=== PATIENT | female | born 1930 | race Caucasian/White ===

== ENCOUNTER 2018-09-24 14:56 | Inpatient (IN) ==
--- NOTE | 2018-09-24 15:58 | Pharmacy Consult Notes ---
[facility] Pharmacy VTE Monitoring - Patient Demographics Admission date: 09/24/18 Report Date: 09/24/18 Time: 15:58 Allergies/Adverse Reactions: Patient Allergies aspirin [ASPIRIN] Allergy (Mild, Unverified 05/14/17 15:32) levofloxacin [From LEVAQUIN] Allergy (Mild, Unverified 05/14/17 15:32) morphine [MORPHINE] Allergy (Mild, Unverified 05/14/17 15:32) Height: 1.63 m Weight: 89.159 kg - VTE Risk Was VTE Risk Assessment Performed: Yes VTE Score: 2 VTE Risk Level: Very Low Risk Clinical Trial Participant: No - Prophylaxis VTE Prophylaxis Ordered?: Yes Types of VTE Prophylaxis: TEDS Knee High Location of Applied Device: Bilateral Lower Extremeties
[2018-09-24 16:08] LABS: Basophils # 0.1 K/mm3 (0-0.2); Basophils % 0.5 % (0.1-2.0); Eosinophils # 0.1 K/mm3 (0.0-0.4); Eosinophils % 0.4 % (0.1-12.0); Hemoglobin 13.7 g/dL (12.2-16.2); Lymphocytes # 2.1 K/mm3 (0.7-4.5); Lymphocytes % 18.8 % (10-50); Mean Corpuscular HGB Conc 33.4 g/dL (31.8-35.4); Mean Corpuscular Hemoglobin 30.7 pg (27.0-31.2); Mean Corpuscular Volume 91.8 fl (81-99); Monocytes # 0.9 K/mm3 (0.1-1.0); Neutrophils % 72.3 % (37.0-80.0); Platelet Count 193 K/mm3 (142-424); Red Blood Count 4.46 M/mm3 (4.20-5.40); Red Cell Distribution Width 13.7 % (11.5-17.5); White Blood Count 11.1 K/mm3 (4.8-10.8)
[2018-09-24 16:11] LABS: Anion Gap 14.2 mEq/L (5-15); Calcium 9.5 mg/dL (8.5-10.1); Potassium 4.2 mmoL/L (3.5-5.1)
--- NOTE | 2018-09-24 17:41 | History & Physical Report ---
*Admission Date: 09/24/18 *Chief complaint: Cough/fever *History of present illness: 88-year-old white female with multiple medical problems who presented to my office with 48 hours of high fever, with temperatures greater than 102 degrees, with cough, congestion and poor oral intake, who had been exposed to multiple viral type illnesses at home with her children and grandchildren. In the office she was found to have negative influenza serologies, negative streptococcal rapid throat testing, but had crackles in her right lower lung field, admitted to hospital for community-acquired pneumonia as a direct admission given her tachycardia, high fever and advanced age with multiple comorbid conditions. 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 No: Pacemaker Amputation: No Fractures: No - *Social History Educational Level: Completed Grade School Smoking Status: Former smoker Tobacco Type: cigarettes # Packs/Day (cigarettes): 1 #Yrs smoked (if former smoker): 5 Alcohol Intake: never *Occupational Status:: retired Housing: house Household Members: children *Travel in the last 8 weeks: None - Psychiatric History Expresses thoughts of harming self/others: None Suicide Plan Description: No Plan Family Hx:: No significant family history Review of Systems - Review of Systems Review of systems:: pertinent systems reviewed and negative unless documented below - Constitutional Reports anorexia, Reports fatigue, Reports fever(s), Reports headache(s) - Eyes Denies blind spots, Denies blurry vision, Denies change in vision - ENT Reports dry mouth, Denies abnormal hearing, Denies dizziness - *Cardiovascular Reports excessive sweating, Denies chest pain, Denies shortness of breath - *Respiratory Reports change in phlegm color, Reports chest congestion, Reports cough, Reports shortness of breath - *Gastrointestinal Denies abdominal pain - *Musculoskeletal Denies abnormal walking - Integumentary/Breasts Denies acne - Psychiatric Denies abnormal sleep pattern Meds Home Medications Medication Instructions Recorded Confirmed Type Amlodipine Besylate [Amlodipine 10 mg PO DAILY 09/24/18 09/24/18 History 10mg Tab] Atorvastatin Calcium [Atorvastatin 40 mg PO HS 09/24/18 09/24/18 History 40mg Tab] Metoprolol Tartrate [Lopressor 25 mg PO DAILY 09/24/18 09/24/18 History 25mg tablet] Montelukast Sodium [Montelukast 10 mg PO DAILY 09/24/18 09/24/18 History 10mg Tab] Montelukast Sodium [Singulair 10mg 10 mg PO PM 09/24/18 09/24/18 History tablet] Olopatadine HCl 1 drops OP DIRECTED 09/24/18 09/24/18 History Sitagliptin Phosphate [Januvia 50 mg PO DAILY 09/24/18 09/24/18 History 50mg Tablet] Ticagrelor [Brilinta 90mg Tablet] 90 mg PO BID 09/24/18 09/24/18 History Warfarin Sodium [Coumadin 1mg 1.5 mg PO DAILY 09/24/18 09/24/18 History tablet] Warfarin Sodium [Coumadin 2mg 2 mg PO WEEKLY 09/24/18 09/24/18 History tablet] Allergies Allergy/AdvReac Type Severity Reaction Status Date / Time aspirin [ASPIRIN] Allergy Mild Unverified 05/14/17 15:32 levofloxacin [From LEVAQUIN] Allergy Mild Unverified 05/14/17 15:32 morphine [MORPHINE] Allergy Mild Unverified 05/14/17 15:32 Exam Vital signs and Labs for Last 24 Hours: Temp Pulse Resp BP Pulse Ox 100.2 F H 150 H 22 150/85 H 96 09/24/18 15:27 09/24/18 15:27 09/24/18 15:27 09/24/18 15:27 09/24/18 15:27 Laboratory Results - last 24 hr 09/24/18 15:45: WBC 11.1 H, RBC 4.46, Hgb 13.7, Hct 41.0, MCV 91.8, MCH 30.7, MCHC 33.4, RDW 13.7, Plt Count 193, MPV 8.0, Neut % (Auto) 72.3, Lymph % (Auto) 18.8, [place] % (Auto) 8.0, Eos % (Auto) 0.4, Baso % (Auto) 0.5, Neut # (Auto) 8.0 H, Lymph # (Auto) 2.1, [place] # (Auto) 0.9, Eos # (Auto) 0.1, Baso # (Auto) 0.1 09/24/18 15:45: Sodium 133 L, Potassium 4.2, Chloride 97 L, Carbon Dioxide 26, Anion Gap 14.2, BUN 14, Creatinine 1.34 H, Estimated Creat Clear 42, Estimated GFR 37 L, Est GFR ( Amer) 45 L, Glucose 253 H, Calcium 9.5 09/24/18 15:45: Mycoplasma pneumon IgM Non-reactive I & O for Last 24 hours: Intake & Output 09/22/18 09/23/18 09/24/18 09/25/18 11:59 11:59 11:59 11:59 Weight 196 lb 9 oz Narrative: Patient is awake, pleasant, alert, oriented. Oropharynx dry but clear. Previously noted left facial drooping. Lungs have crackles in right lower lung field approximately one third of the way up the lung field. Heart rate regular with occasional ectopic beat. Abdomen soft and nontender. Trace ankle edema. Able to move all arms and legs symmetrically. Assessment and Plan (1) Community acquired pneumonia Current visit: Yes Status: Acute Category: Medical Code(s): J18.9 - Pneumonia, unspecified organism Admit to hospital. Begin standard therapy. Oxygen therapy and close observation. Gentle hydration. (2) Acute febrile illness Current visit: Yes Status: Acute Category: Medical Code(s): R50.9 - Fever, unspecified Blood and sputum cultures ordered. (3) BMI greater than 30 Current visit: Yes Status: Acute Category: Medical (4) Diabetes mellitus type 2, noninsulin dependent Current visit: Yes Status: Acute Category: Medical Code(s): E11.9 - Type 2 diabetes mellitus without complications Continue oral therapy, sliding scale insulin, complicates all aspects of her care (5) Coronary atherosclerosis Current visit: Yes Status: Acute Category: Medical Code(s): I25.10 - Atherosclerotic heart disease of [place] coronary artery without angina pectoris No evidence of recurrent disease. Complicates all aspects of her care (6) Chronic atrial fibrillation Current visit: Yes Status: Acute Category: Medical Code(s): I48.2 - Chronic atrial fibrillation Rate controlled, on anticoagulation.
[2018-09-25 06:42] LABS: Basophils % 0.4 % (0.1-2.0); Eosinophils # 0.1 K/mm3 (0.0-0.4); Eosinophils % 0.8 % (0.1-12.0); Hematocrit 36.4 % (37.0-47.0); Lymphocytes % 28.9 % (10-50); Mean Corpuscular HGB Conc 33.3 g/dL (31.8-35.4); Mean Corpuscular Hemoglobin 31.1 pg (27.0-31.2); Mean Corpuscular Volume 93.3 fl (81-99); Mean Platelet Volume 7.8 fl (7.4-10.4); Monocytes # 0.9 K/mm3 (0.1-1.0); Monocytes % 8.5 % (1.7-9.3); Neutrophils # 6.3 K/mm3 (1.8-7.8); Neutrophils % 61.3 % (37.0-80.0); Platelet Count 188 K/mm3 (142-424); Red Cell Distribution Width 13.8 % (11.5-17.5); White Blood Count 10.3 K/mm3 (4.8-10.8)
[2018-09-25 06:48] LABS: INR 2.69 (0.9-1.1); Prothrombin Time 26.9 seconds (9.4-11.8)
[2018-09-25 06:56] LABS: Hemoglobin 12.2 g/dL (12.2-16.2)
[2018-09-25 07:06] LABS: Albumin Level 2.3 gm/dL (3.4-5.0); Albumin/Globulin Ratio 0.4 (1.1-1.8); Anion Gap 11.7 mEq/L (5-15); Bilirubin,Total 0.5 mg/dL (0.2-1.0); Calcium 8.9 mg/dL (8.5-10.1); Globulin 5.6 gm/dl (1.3-3.2); Potassium 3.7 mmoL/L (3.5-5.1); Total Protein,Serum 7.9 gm/dL (6.4-8.2)
--- NOTE | 2018-09-25 07:32 | Progress Note ---
Internal Medicine - PN: Subj *Date: 09/25/18 *Time: 07:29 Interval history: Patient did well overnight. This morning she states that she feels "lazy." But denies pain. Emergency Exam Vital signs and Labs for Last 24 Hours: Temp Pulse Resp BP Pulse Ox 98.4 F 107 H 18 142/68 H 97 09/25/18 04:00 09/25/18 04:00 09/25/18 04:00 09/25/18 04:00 09/25/18 04:00 Laboratory Results - last 24 hr 09/24/18 15:45: WBC 11.1 H, RBC 4.46, Hgb 13.7, Hct 41.0, MCV 91.8, MCH 30.7, MCHC 33.4, RDW 13.7, Plt Count 193, MPV 8.0, Neut % (Auto) 72.3, Lymph % (Auto) 18.8, Iron % (Auto) 8.0, Eos % (Auto) 0.4, Baso % (Auto) 0.5, Neut # (Auto) 8.0 H, Lymph # (Auto) 2.1, Iron # (Auto) 0.9, Eos # (Auto) 0.1, Baso # (Auto) 0.1 09/24/18 15:45: Sodium 133 L, Potassium 4.2, Chloride 97 L, Carbon Dioxide 26, Anion Gap 14.2, BUN 14, Creatinine 1.34 H, Estimated Creat Clear 42, Estimated GFR 37 L, Est GFR ( Amer) 45 L, Glucose 253 H, Calcium 9.5 09/24/18 15:45: Mycoplasma pneumon IgM Non-reactive 09/24/18 20:46: POC Glucose 233 H 09/25/18 05:39: WBC 10.3, RBC 3.90 L, Hgb 12.2 D, Hct 36.4 L, MCV 93.3, MCH 31.1, MCHC 33.3, RDW 13.8, Plt Count 188, MPV 7.8, Neut % (Auto) 61.3, Lymph % (Auto) 28.9, Iron % (Auto) 8.5, Eos % (Auto) 0.8, Baso % (Auto) 0.4, Neut # (Auto) 6.3, Lymph # (Auto) 3.0, Iron # (Auto) 0.9, Eos # (Auto) 0.1, Baso # (Auto) 0.0 09/25/18 05:39: PT 26.9 H, INR 2.69 H 09/25/18 05:39: Sodium 136, Potassium 3.7, Chloride 102, Carbon Dioxide 26, Anio n Gap 11.7, BUN 13, Creatinine 1.15 H, Estimated Creat Clear 48, Estimated GFR 45 L, Est GFR ( Amer) 54 L, Glucose 151 H D, Calcium 8.9, Total Bilirubin 0.5, AST 24, ALT 33, Alkaline Phosphatase 76, Total Protein 7.9, Albumin 2.3 L, Globulin 5.6 H, Albumin/Globulin Ratio 0.4 L 09/25/18 06:22: POC Glucose 162 H I & O for Last 24 hours: Intake & Output 09/22/18 09/23/18 09/24/18 09/25/18 11:59 11:59 11:59 11:59 Intake Total 963 / 963 Output Total 150 / 150 Balance 813 / 813 Weight 196 lb 6 oz Microbiology Reports for the Last 24 Hours: Microbiology 09/24/18 21:10 Sputum - Expectorated Sputum Gram Stain - Final Narrative: Patient is alert, pleasant. Able to move about in the bed and sit up under her own power. Lungs have rhonchi in both lung romano with crackles in the right side. No wheezing. Heart rate regular with a soft flow murmur. Abdomen soft and nontender. No ankle edema or clubbing. No new neurologic changes, is continues to have facial drooping as a residual from her old CVA Assessment and Plan (1) Community acquired pneumonia Current visit: Yes Status: Acute Category: Medical Code(s): J18.9 - Pneumonia, unspecified organism Right lower lobe pneumonia on chest x-ray. Continue standard protocol for community-acquired pneumonia and await culture results. (2) Acute febrile illness Current visit: Yes Status: Acute Category: Medical Code(s): R50.9 - Fever, unspecified Fever improving. (3) BMI greater than 30 Current visit: Yes Status: Acute Category: Medical (4) Diabetes mellitus type 2, noninsulin dependent Current visit: Yes Status: Acute Category: Medical Code(s): E11.9 - Type 2 diabetes mellitus without complications (5) Coronary atherosclerosis Current visit: Yes Status: Acute Category: Medical Code(s): I25.10 - Atherosclerotic heart disease of [place] coronary artery without angina pectoris (6) Chronic atrial fibrillation Current visit: Yes Status: Acute Category: Medical Code(s): I48.2 - Chronic atrial fibrillation (7) Hyponatremia Current visit: Yes Status: Acute Category: Medical Code(s): E87.1 - Hypo- osmolality and hyponatremia Present on admission, improving. (8) History of CVA with residual deficit Current visit: Yes Status: Acute Category: Medical Code(s): I69.30 - Unspecified sequelae of cerebral infarction Complicates all aspects of her care. We will obtain speech evaluation with modified barium swallow today given right lower lobe pneumonia and facial drooping.
[2018-09-26 04:28] LABS: Microscopic, Urine URINE MICROSCOPIC (MICROSCOPIC)
[2018-09-26 04:32] LABS: Appearance,Urine CLEAR (Clear); Bilirubin,Urine Negative (Negative); Blood, Urine TRACE-I (Negative); Color,Urine YELLOW (Yellow); Glucose,Urine (UA) Negative (Negative); Ketones,Urine Negative (Negative); Leukocyte Esterase,Urine 1+ (Negative); Protein,Urine 1+ (Negative); Specific Gravity, Urine 1.015 (1.005-1.030); Urobilinogen,Urine 0.2 EU/dl (0.2)
[2018-09-26 05:15] LABS: Bacteria,Urine 1+ /lpf; RBC,Urine Occasional #/hpf (0-3); Squamous Epithelial Cell,Urine 20-50 #/hpf (0-5)
[2018-09-26 06:39] LABS: Basophils # 0.1 K/mm3 (0-0.2); Basophils % 0.5 % (0.1-2.0); Eosinophils # 0.1 K/mm3 (0.0-0.4); Eosinophils % 1.1 % (0.1-12.0); Hematocrit 36.5 % (37.0-47.0); Hemoglobin 12.4 g/dL (12.2-16.2); Lymphocytes # 2.8 K/mm3 (0.7-4.5); Mean Corpuscular Hemoglobin 31.4 pg (27.0-31.2); Mean Corpuscular Volume 92.4 fl (81-99); Mean Platelet Volume 7.7 fl (7.4-10.4); Monocytes # 0.8 K/mm3 (0.1-1.0); Monocytes % 7.5 % (1.7-9.3); Neutrophils # 6.6 K/mm3 (1.8-7.8); Neutrophils % 63.9 % (37.0-80.0); Platelet Count 206 K/mm3 (142-424); Red Blood Count 3.95 M/mm3 (4.20-5.40); Red Cell Distribution Width 13.8 % (11.5-17.5); White Blood Count 10.4 K/mm3 (4.8-10.8)
[2018-09-26 07:08] LABS: Albumin Level 2.4 gm/dL (3.4-5.0); Albumin/Globulin Ratio 0.4 (1.1-1.8); Anion Gap 10.7 mEq/L (5-15); Bilirubin,Total 0.4 mg/dL (0.2-1.0); Calcium 8.9 mg/dL (8.5-10.1); Globulin 5.9 gm/dl (1.3-3.2); Potassium 3.7 mmoL/L (3.5-5.1); Total Protein,Serum 8.3 gm/dL (6.4-8.2)
--- NOTE | 2018-09-26 08:16 | Discharge Summary ---
General - General Admission date:: 09/24/18 Discharge date: 09/26/18 HPI HPI: 88-year-old white female with multiple medical problems who presented to my office with 48 hours of high fever, with temperatures greater than 102 degrees, with cough, congestion and poor oral intake, who had been exposed to multiple viral type illnesses at home with her children and grandchildren. In the office she was found to have negative influenza serologies, negative streptococcal rapid throat testing, but had crackles in her right lower lung field, admitted to hospital for community-acquired pneumonia as a direct admission given her tachycardia, high fever and advanced age with multiple comorbid conditions. Hospital Course Hospital Course: 88-year-old female admitted for acute hypoxic respiratory failure and pneumonia. Started on IV antibiotics and pneumonia protocol. Culture obtained, still pending. Had significant clinical improvement with ceftriaxone and azithromycin. Able to wean off supplemental oxygen. Tolerating p.o. intake. Remains afebrile, hemodynamically stable. Not dyspneic, denies chest pain, nausea, vomiting. Patient transition to oral antibiotics to complete 10-day course. Will need close follow-up given her use of warfarin to monitor INR and adjust for any increased risk for bleeding. Otically stable for discharge home. Objective Vital signs: Temp Pulse Resp BP Pulse Ox 98.6 F 84 17 151/90 H 97 09/26/18 07:52 09/26/18 07:52 09/26/18 07:52 09/26/18 07:52 09/26/18 07:52 Narrative: Patient is alert, Oriented, and pleasant. In bedside chair on exam. Lungs have rhonchi in both lung romano with crackles in the right side posterior lung field; No wheezing. Heart rate regular with a soft flow murmur. Abdomen soft and nontender. trace ankle edema, no clubbing. No new neurologic changes, is continues to have facial drooping as a residual from her old CVA Results Labs on day of discharge: Labs from last 24 hours 09/26/18 09/26/18 09/26/18 05:44 05:44 04:10 WBC 10.4 RBC 3.95 L Hgb 12.4 Hct 36.5 L MCV 92.4 MCH 31.4 H MCHC 34.0 RDW 13.8 Plt Count 206 MPV 7.7 Neut % (Auto) 63.9 Lymph % (Auto) 27.0 [place] % (Auto) 7.5 Eos % (Auto) 1.1 Baso % (Auto) 0.5 Neut # (Auto) 6.6 Lymph # (Auto) 2.8 [place] # (Auto) 0.8 Eos # (Auto) 0.1 Baso # (Auto) 0.1 Sodium 134 L Potassium 3.7 Chloride 101 Carbon Dioxide 26 Anion Gap 10.7 BUN 16 Creatinine 1.22 H Estimated Creat Clear 49 Estimated GFR 42 L Est GFR ( Amer) 50 L Glucose 164 H POC Glucose Calcium 8.9 Total Bilirubin 0.4 AST 28 ALT 35 Alkaline Phosphatase 79 Total Protein 8.3 H Albumin 2.4 L Globulin 5.9 H Albumin/Globulin Ratio 0.4 L Urine Color Yellow Urine Appearance Clear Urine pH 6.0 Ur Specific [place] 1.015 Urine Protein 1+ Urine Glucose (UA) Negative Urine Ketones Negative Urine Blood Trace-i Urine Nitrate Negative Urine Bilirubin Negative Urine Urobilinogen 0.2 Ur Leukocyte Esterase 1+ A Urine RBC Occasional Urine WBC 5-10 Ur Squamous Epith Cells 20-50 Urine Bacteria 1+ 09/25/18 09/25/18 09/25/18 21:09 16:40 11:41 WBC RBC Hgb Hct MCV MCH MCHC RDW Plt Count MPV Neut % (Auto) Lymph % (Auto) [place] % (Auto) Eos % (Auto) Baso % (Auto) Neut # (Auto) Lymph # (Auto) [place] # (Auto) Eos # (Auto) Baso # (Auto) Sodium Potassium Chloride Carbon Dioxide Anion Gap BUN Creatinine Estimated Creat Clear Estimated GFR Est GFR ( Amer) Glucose POC Glucose 153 H 172 H 166 H Calcium Total Bilirubin AST ALT Alkaline Phosphatase Total Protein Albumin Globulin Albumin/Globulin Ratio Urine Color Urine Appearance Urine pH Ur Specific [place] Urine Protein Urine Glucose (UA) Urine Ketones Urine Blood Urine Nitrate Urine Bilirubin Urine Urobilinogen Ur Leukocyte Esterase Urine RBC Urine WBC Ur Squamous Epith Cells Urine Bacteria DS: Diagnosis - Discharge Diagnosis (1) Community acquired pneumonia Status: Acute (2) Acute febrile illness Status: Resolved (3) BMI greater than 30 Status: Chronic (4) Diabetes mellitus type 2, noninsulin dependent Status: Chronic (5) Coronary atherosclerosis Status: Chronic (6) Chronic atrial fibrillation Status: Chronic (7) Hyponatremia Status: Resolved (8) History of CVA with residual deficit Status: Chronic Discharge Plan - Patient Discharge Instructions Patient Instructions: Type 2 Diabetes, DI for Pneumonia -- Adult - Follow up Plan Follow up with: Juanjose Simental MD [Primary Care Provider] - 10/13/18 11:15 am Disposition: Home, Self-Custodial Medications: Home Medications Medication Instructions Recorded Confirmed Type Amlodipine Besylate [Amlodipine 10 mg PO DAILY 09/24/18 09/24/18 History 10mg Tab] Atorvastatin Calcium [Atorvastatin 40 mg PO HS 09/24/18 09/24/18 History 40mg Tab] Metoprolol Tartrate [Lopressor 25 mg PO DAILY 09/24/18 09/24/18 History 25mg tablet] Montelukast Sodium [Singulair 10mg 10 mg PO PM 09/24/18 09/24/18 History tablet] Olopatadine HCl 1 drops OP DIRECTED 09/24/18 09/24/18 History Sitagliptin Phosphate [Januvia 50 mg PO DAILY 09/24/18 09/24/18 History 50mg Tablet] Ticagrelor [Brilinta 90mg Tablet] 90 mg PO BID 09/24/18 09/24/18 History Warfarin Sodium [Coumadin 2mg 4 mg PO [id number] 09/24/18 09/25/18 History tablet] Warfarin Sodium 3 mg PO MO 09/25/18 09/25/18 History Azithromycin [Azithromycin 500mg 500 mg PO DAILY 1 Days #1 tab 09/26/18 Rx Tab] Cefdinir [Omnicef 300mg Capsule] 300 mg PO BID 8 Days #16 cap 09/26/18 Rx Prescriptions/Medication Reconciliation: New Azithromycin [Azithromycin 500mg Tab] 500 mg PO DAILY 1 Days #1 tab Cefdinir [Omnicef 300mg Capsule] 300 mg PO BID 8 Days #16 cap Montelukast Sodium [Singulair 10mg tablet] 10 mg PO HS tablet Continued Amlodipine Besylate [Amlodipine 10mg Tab] 10 mg PO DAILY Atorvastatin Calcium [Atorvastatin 40mg Tab] 40 mg PO HS Metoprolol Tartrate [Lopressor 25mg tablet] 25 mg PO DAILY Sitagliptin Phosphate [Januvia 50mg Tablet] 50 mg PO DAILY Ticagrelor [Brilinta 90mg Tablet] 90 mg PO BID Warfarin Sodium [Coumadin 2mg tablet] 4 mg PO [id number] Olopatadine HCl 1 drops OP DIRECTED Montelukast Sodium [Singulair 10mg tablet] 10 mg PO PM Warfarin Sodium 3 mg PO MO
== END 2018-09-26 11:50 | disposition home or self-care (01) | DRG 189 ==
LOC: 2ND 14:56
PROVIDERS: ADMIT Internal Medicine Adolescent Medicine; ATTEND Internal Medicine Adolescent Medicine
DX: Z88.5 Allergy status to narcotic agent; I25.10 Atherosclerotic heart disease of native coronary artery without angina pectoris; J18.9 Pneumonia, unspecified organism; Z88.8 Allergy status to other drugs, medicaments and biological substances; I10 Essential (primary) hypertension; I48.2 Chronic atrial fibrillation; Z88.1 Allergy status to other antibiotic agents; I69.392 Facial weakness following cerebral infarction; Z79.01 Long term (current) use of anticoagulants; E11.9 Type 2 diabetes mellitus without complications; Z79.899 Other long term (current) drug therapy; Z95.2 Presence of prosthetic heart valve; J96.01 Acute respiratory failure with hypoxia
CPT/HCPCS: 36415; 70371; 71020; 71046; 80048; 80053; 81001; 82962; 85025; 85610; 86738; 87040; 87070; 87077; 87086; 87184; 87205; 92611; 94761; 97110; 97116; 97161; 97165; 97535; J0456